=== PATIENT | female | born 1970 | race Caucasian/White ===

== ENCOUNTER 2017-05-07 11:11 | Inpatient (IN) ==
--- NOTE | 2017-05-07 11:17 | Emergency Department Note ---
Disposition Clinical Impression: Renal insufficiency DKA (diabetic ketoacidoses) Qualifiers: Diabetes mellitus type: type 1 Diabetes mellitus complication detail: without coma Qualified Code(s): E10.10 - Type 1 diabetes mellitus with ketoacidosis without coma Disposition: Admitted As Inpatient Condition: Fair Referrals: Angie Knott MD [Primary Care Provider] - Forms: ED Satisfaction Letter General Adult HPI - General Chief complaint: ED Dizziness Stated complaint: Dizzy, and cant walk straight Time Seen by Provider: 05/07/17 11:15 Source: patient, family Mode of arrival: private vehicle Limitations: no limitations Nursing Notes Reviewed: Yes Vital Signs Reviewed: Yes - History of Present Illness HPI Narrative: The patient relates that she has been feeling worse since being evaluated. That time she had some nausea and vomiting for about a day was returned to be hyperglycemic mildly acidotic. She has improved with IV fluids and insulin and discharged with prescriptions for Phenergan and Zofran. Since going home she has continued with weakness and dizziness. She reports now she is having difficulty with standing and walking. She relates she has had a couple falls down toward knees without significant injury. She reports increased weakness, dyspnea and dyspnea on exertion. Denies cough, fevers or chills. She indicates she has been taking the nausea medicine and is not had further vomiting. She states she has had persistent thirst and frequent urination. She indicates her blood sugars have been running "high" indicates that than in the range of 300-500. She denies any abdominal pain, diarrhea, change in medications or ill exposures. She states she simply become to tired and weak to stay at home. Onset (ago): day(s) Pain Scale: 0 Consistency: Worsening Improves with: rest Worsens with: movement, other (Exertion) Associated symptoms: Reports: malaise, weakness. Denies: confusion, chest pain , cough, diaphoresis, fever/chills, headaches, loss of appetite, nausea/vomiting , rash, seizure, shortness of breath, syncope - Related Data Home Medications Medication Instructions Recorded Confirmed Albuterol Sulfate [Proair Hfa] 1 puff IH Q6HR PRN 06/27/16 05/07/17 Aspirin [Lo-Dose Aspirin EC] 81 mg PO QAM 06/27/16 05/07/17 Insulin Glargine [Lantus] 50 unit SQ HS 06/27/16 05/07/17 Insulin LISPRO [HumaLOG] 0 units SQ TIDWM 06/27/16 05/07/17 Lisinopril [Zestril] 10 mg PO DAILY 06/27/16 05/07/17 Loratadine [Claritin] 10 mg PO QAM 06/27/16 05/07/17 Omeprazole [PriLOSEC] 40 mg PO DAILY 06/27/16 05/07/17 Rosuvastatin [Crestor] 40 mg PO HS 06/27/16 05/07/17 Previous Rx's Medication Instructions Recorded metFORMIN [Glucophage] 850 mg PO BIDWM #60 tablet 02/25/16 Ondansetron ODT [Zofran ODT] 4 mg SL Q6HR #10 tab.rapdis 05/03/17 Promethazine [Phenergan] 25 mg RC Q8HR PRN #10 supp.rect 05/03/17 Allergies Allergy/AdvReac Type Severity Reaction Status Date / Time No Known Allergies Allergy Verified 02/25/16 17:49 All systems ED: reviewed and negative except as stated. Past Medical History - Past Medical History Attestation: Yes The following information was validated with the patient. Source: patient, old records reviewed, nursing notes reviewed Medical history: Reports: asthma, diabetes, GERD, hyperlipidemia, hypertension, other Surgical history: Reports: , other (Tonsillectomy) Psychiatric history: Reports: no psych history [employer] history: Reports: bilateral tubal ligation - Social History Smoking Status: Never smoker Smokeless Tobacco Status: No Alcohol use: Reports: none Drug use: Reports: none Physical Exam - General Limitations: no limitations General appearance: alert, in no apparent distress - Head Head exam: atraumatic, normocephalic, normal inspection - Eye Eye exam: Present: normal appearance, PERRL, EOMI. Absent: scleral icterus, conjunctival injection - ENT ENT exam: normal exam, normal oropharynx, mucous membranes dry - Neck Neck exam: Present: normal inspection, full ROM, trachea midline - Chest Chest inspection: Present: normal inspection, symmetric chest wall rise - Respiratory Respiratory exam: Present: normal lung sounds bilaterally, respiratory distress (Tachypnea). Absent: wheezes, prolonged expiratory phase - Cardiovascular Cardiovascular exam: Present: regular rate, normal rhythm, tachycardia, normal heart sounds - Abdominal Exam Abdominal exam: Present: soft, Non-Tender, normal bowel sounds. Absent: tenderness, distention, guarding, rebound, rigidity - Extremities Exam Extremities exam: Present: normal inspection, full ROM, normal capillary refill. Absent: tenderness, pedal edema - Expanded Lower Extremity Exam Neurovascular/Tendon exam: Present: normal capillary refill. Absent: motor deficit, sensory deficit, tendon deficit Gait: not tested/not observed - Back Exam Back exam: Present: normal inspection, full ROM. Absent: tenderness, CVA tenderness (R), CVA tenderness (L) - Neurological Exam Neurological exam: Present: alert, oriented X3 - Psychiatric Psychiatric exam: Present: normal affect, normal mood - Skin Skin exam: Present: warm, dry, intact, normal color. Absent: diaphoresis, pallor Course Course Narrative: 1215: The patient's bicarbonate is critical at 5 but the blood sugars under 300. She is continued on aggressive IV fluids and ordered her some sodium bicarbonate. I am awaiting the return to the remainder of her laboratories. 1300: There has been discussed with Dr. Villasenor with verbal orders for her transfer to the floor for further inpatient care. Vital Signs Temperature 98.7 F 05/07/17 11:14 Pulse Rate 119 05/07/17 11:14 Respiratory Rate 16 05/07/17 11:14 Blood Pressure 133/89 05/07/17 11:14 O2 Sat by Pulse Oximetry 100 05/07/17 11:14 Temperature 98.7 F 05/07/17 13:30 Pulse Rate 104 05/07/17 13:30 Respiratory Rate 16 05/07/17 13:30 Blood Pressure 128/60 05/07/17 13:30 O2 Sat by Pulse Oximetry 100 05/07/17 13:30 Oxygen Delivery Oxygen Delivery Room Air Medical Decision Making - Medical Records Medical records reviewed: Yes I reviewed the patient's medical records. - Lab Data Lab results reviewed: Yes I reviewed the patient's lab results. Result diagrams: 05/07/17 11:35 05/07/17 11:35 Lab Results 05/07/17 05/07/17 05/07/17 Range/Units 11:35 11:35 11:35 WBC 11.3 H (4.3-11.1) K/mcL RBC 5.94 H (3.82-4.97) M/mcL Hgb 18.0 H (11.5-15.4) g/dL Hct 50.5 H (35.3-44.9) % MCV 85.0 (83.0-100.0) fL MCH 30.3 (28.0-33.3) pg MCHC 35.6 H (31.6-35.5) g/dL RDW 12.0 (11.5-14.5) % Plt Count 351 (140-400) K/mcL MPV 9.7 (9.4-12.4) fL Immature Gran % 0.6 (0-4) % Seg Neutrophils % 82.4 % Lymphocytes % 10.2 % Monocytes % 6.3 % Eosinophils % 0.3 % Basophils % 0.2 % Neutrophils # 9.3 H (1.6-8.9) K/mcL Lymphocytes # 1.2 (0.6-4.6) K/mcL Monocytes # 0.7 (0.0-1.3) K/mcL Eosinophils # 0.0 (0.0-0.6) K/mcL Basophils # 0.0 (0.0-0.2) K/mcL VBG pH 7.14 L* (7.32-7.42) pH Units VBG pCO2 19.5 L (41-51) mmHg VBG pO2 138.5 H (25-40) mmHg VBG HCO3 6.7 L (21-27) mEq/L Sodium 135 L (136-145) mEq/L Potassium 3.0 L (3.5-4.5) mEq/L Chloride 104 (98-109) mEq/L Carbon Dioxide 5 L* (19-29) mEq/L BUN 22 H (7-20) mg/dL Creatinine 1.38 H (0.57-1.11) mg/dL Est GFR ( Amer) 49 L (> 60) Est GFR (Non-Af Amer) 41 L (> 60) BUN/Creatinine Ratio 16 (6-26) Glucose 294 H (70-99) mg/dL Calculated Osmolality 294 (280-300) Calcium 8.7 (8.6-10.8) mg/dL Beta-Hydroxybutyric Acd > 2.00 H (0.02-0.27) mmol/L Urine Color (Yellow) Urine Clarity (Clear) Urine pH (5.0-8.0) pH Units Ur Specific [place] (1.010-1.025) Urine Protein (Neg-Trace) mg/dL Urine Glucose (UA) (Normal) mg/dL Urine Ketones (Negative) mg/dL Urine Blood (Negative) Urine Nitrite (Negative) Urine Bilirubin (Negative) Urine Urobilinogen (Normal) mg/dL Ur Leukocyte Esterase (Negative) 05/07/17 Range/Units 12:49 WBC (4.3-11.1) K/mcL RBC (3.82-4.97) M/mcL Hgb (11.5-15.4) g/dL Hct (35.3-44.9) % MCV (83.0-100.0) fL MCH (28.0-33.3) pg MCHC (31.6-35.5) g/dL RDW (11.5-14.5) % Plt Count (140-400) K/mcL MPV (9.4-12.4) fL Immature Gran % (0-4) % Seg Neutrophils % % Lymphocytes % % Monocytes % % Eosinophils % % Basophils % % Neutrophils # (1.6-8.9) K/mcL Lymphocytes # (0.6-4.6) K/mcL Monocytes # (0.0-1.3) K/mcL Eosinophils # (0.0-0.6) K/mcL Basophils # (0.0-0.2) K/mcL VBG pH (7.32-7.42) pH Units VBG pCO2 (41-51) mmHg VBG pO2 (25-40) mmHg VBG HCO3 (21-27) mEq/L Sodium (136-145) mEq/L Potassium (3.5-4.5) mEq/L Chloride (98-109) mEq/L Carbon Dioxide (19-29) mEq/L BUN (7-20) mg/dL Creatinine (0.57-1.11) mg/dL Est GFR ( Amer) (> 60) Est GFR (Non-Af Amer) (> 60) BUN/Creatinine Ratio (6-26) Glucose (70-99) mg/dL Calculated Osmolality (280-300) Calcium (8.6-10.8) mg/dL Beta-Hydroxybutyric Acd (0.02-0.27) mmol/L Urine Color Yellow (Yellow) Urine Clarity Cloudy A (Clear) Urine pH 5.5 (5.0-8.0) pH Units Ur Specific [place] >= 1.030 H (1.010-1.025) Urine Protein 100 H (Neg-Trace) mg/dL Urine Glucose (UA) 500 H (Normal) mg/dL Urine Ketones >=160 H (Negative) mg/dL Urine Blood Trace-lysed H (Negative) Urine Nitrite Negative (Negative) Urine Bilirubin Negative (Negative) Urine Urobilinogen Normal (Normal) mg/dL Ur Leukocyte Esterase Negative (Negative)
[2017-05-07] MEDS ORDERED: Ondansetron 4 MG/2 ML VIAL IVP ONE (11:26)
[2017-05-07] MEDS ORDERED: 0.9 % Sodium Chloride 1,000 ML IVC ONE (11:26)
[2017-05-07 11:50] LABS: Basophils % 0.2 %; Eosinophils % 0.3 %; Hematocrit 50.5 % (35.3-44.9); Immature Granulocytes % 0.6 % (0-4); Lymphocytes # 1.2 K/mcL (0.6-4.6); Lymphocytes % 10.2 %; Mean Corpuscular HGB Conc 35.6 g/dL (31.6-35.5); Mean Corpuscular Hemoglobin 30.3 pg (28.0-33.3); Mean Platelet Volume 9.7 fL (9.4-12.4); Monocytes # 0.7 K/mcL (0.0-1.3); Monocytes % 6.3 %; Neutrophils # 9.3 K/mcL (1.6-8.9); Platelet Count 351 K/mcL (140-400); Red Blood Count 5.94 M/mcL (3.82-4.97); Segmented Neutrophils % 82.4 %
[2017-05-07 12:11] LABS: BUN/Creatinine Ratio 16 (6-26); Blood Urea Nitrogen 22 mg/dL (7-20); Calcium 8.7 mg/dL (8.6-10.8); Chloride 104 mEq/L (98-109); Glucose 294 mg/dL (70-99); Osmolality,Calculated 294 (280-300); Sodium 135 mEq/L (136-145); eGFR For African Americans 49 (> 60); eGFR For Non-African Americans 41 (> 60)
[2017-05-07 12:15] LABS: Carbon Dioxide 5 mEq/L (19-29)
[2017-05-07 12:18] LABS: Beta-Hydroxybutyric Acid > 2.00 mmol/L (0.02-0.27)
[2017-05-07 12:22] LABS: VBG HCO3 6.7 mEq/L (21-27); VBG PCO2 19.5 mmHg (41-51); VBG PH 7.14 pH Units (7.32-7.42); VBG PO2 138.5 mmHg (25-40)
[2017-05-07] MEDS ORDERED: Insulin Regular, Human 100 UNIT/ML SQ ONE (12:28)
[2017-05-07] MEDS: 0.9 % Sodium Chloride 1,000 ML IVC ONE (12:40)
[2017-05-07 13:17] LABS: Bilirubin,Urine Negative (Negative); Blood,Urine Trace-lysed (Negative); Clarity,Urine Cloudy (Clear); Color,Urine Yellow (Yellow); Glucose,Urine (UA) 500 mg/dL (Normal); Ketones,Urine >=160 mg/dL (Negative); Leukocyte Esterase,Urine Negative (Negative); Nitrite,Urine Negative (Negative); PH,Urine 5.5 pH Units (5.0-8.0); Protein,Urine 100 mg/dL (Neg-Trace); Specific Gravity,Urine >= 1.030 (1.010-1.025); Urobilinogen,Urine Normal (Normal)
[2017-05-07 13:35] LABS: RBC,Urine 0-3 per hpf (0-3); Squamous Epithelial Cell,Urine Few per lpf (None-Few); WBC,Urine 0-3 per hpf (0-3)
[2017-05-07 13:36] LABS: Bacteria,Urine Few per hpf (None-Few); Yeast,Urine Many per hpf (None Seen)
[2017-05-07] MEDS ORDERED: Dextrose Gel 15 GM PO PRN ×2 (14:26)
[2017-05-07] MEDS ORDERED: Albuterol 2.5 MG/3 ML NEBULIZER IH PRN (14:26)
[2017-05-07] MEDS ORDERED: *HR* Dextrose 50 % in Water (Syg) 50 ML SYRINGE IVP PRN (14:26)
[2017-05-07] MEDS ORDERED: MOM Conc 10 ML UD.LIQ PO PRN (14:26)
[2017-05-07] MEDS ORDERED: Naloxone 0.4 MG/ML INJ IVP PRN (14:26)
[2017-05-07] MEDS ORDERED: Ondansetron 4 MG/2 ML VIAL IVP PRN (14:26)
[2017-05-07] MEDS ORDERED: 0.9 % Sodium Chloride 1,000 ML IVC SCH (14:26)
[2017-05-07] MEDS ORDERED: D5% in Water 1,000 ML IVC PRN (14:26)
[2017-05-07] MEDS ORDERED: 0.9 % Sodium Chloride 1,000 ML ONE (14:27)
--- NOTE | 2017-05-07 16:40 | Internal Med History&Physical ---
Date of Encounter: 05/07/17 Time of Encounter: 15:35 Assessment and Plan (1) DKA (diabetic ketoacidoses) Current visit: Yes Status: Acute She has been started on IV fluids with insulin coverage. She was given 2 ampules of sodium bicarbonate IV in emergency room. Labs will be monitored. Qualifiers: Diabetes mellitus type: type 1 Diabetes mellitus complication detail: without coma Qualified Code(s): E10.10 - Type 1 diabetes mellitus with ketoacidosis without coma (2) Hypokalemia Current visit: Yes Status: Acute Probably secondary to vomiting. Supplemental potassium will be given. (3) Renal insufficiency Current visit: Yes Status: Acute She will be given IV fluids and renal indices will be monitored. Internal Medicine - H&P: HPI Chief complaint: Vomiting and weakness Admitted From: Home Plans for Post Hospital Care: Home History of present illness: Ms. Matos is a 47 year old female who came to emergency room stating she had onset of vomiting May 03. There was no hematemesis, diarrhea or abdominal pain. After multiple episodes of vomiting she came to emergency room. She was given anti-emetics and released. She had 2 only more episodes of vomiting but had progressive weakness over the next 2 days. She states she had a fall at home on May 05 due to the weakness. When she did not feel she was improving she came back to emergency room today. She was evaluated and found to have DKA with hypokalemia. [facility] care [facility]. She denies previous DKA. She states she was diagnosed with DM 2 at age 26. She reports checking her blood sugar 5 times daily with readings between 100-300 + mg percent. Her endocrine history is significant for hyperlipidemia but no known thyroid disease. Past Med Surg Social Fam HX - Past Medical History Medical history: asthma, diabetes, GERD, hyperlipidemia, hypertension, other Psychiatric history: no psych history - Past Surgical History Surgical History: , other - Social History Smoking Status: Never smoker Smokeless Tobacco Status: No Alcohol use: none Drug use: none Internal Medicine - H&P: Meds metFORMIN [Glucophage] 850 mg PO BIDWM #60 tablet 02/25/16 [Rx] Albuterol Sulfate [Proair Hfa] 1 puff IH Q6HR PRN 06/27/16 [History] Aspirin [Lo-Dose Aspirin EC] 81 mg PO QAM 06/27/16 [History] Insulin Glargine [Lantus] 50 unit SQ HS 06/27/16 [History] Insulin LISPRO [HumaLOG] 0 units SQ TIDWM 06/27/16 [History] Lisinopril [Zestril] 10 mg PO DAILY 06/27/16 [History] Loratadine [Claritin] 10 mg PO QAM 06/27/16 [History] Omeprazole [PriLOSEC] 40 mg PO DAILY 06/27/16 [History] Rosuvastatin [Crestor] 40 mg PO HS 06/27/16 [History] Ondansetron ODT [Zofran ODT] 4 mg SL Q6HR #10 tab.rapdis 05/03/17 [Rx] Promethazine [Phenergan] 25 mg RC Q8HR PRN #10 supp.rect 05/03/17 [Rx] Allergies No Known Allergies Allergy (Verified 02/25/16 17:49) All Systems PM: A 10-system review of systems was performed and is negative for pertinent findings except as documented above in the HPI. Review of systems: Gen.: She states her weight has been stable the past few months Cardiovascular: She has a history of hypertension. She denies DC or heart failure but states she had a DVT with pulmonary embolism in 1995. Respiratory: She smoked minimally from ages [age]. She has no chronic lung disease. GI: She denies disorders of her liver gallbladder or exocrine pancreas : She had a kidney stone approximately 2 years ago. She denies other kidney or bladder disorders. Neurologic: She denies large distribution strokes or seizures. Endocrine: As per history of present illness Hematology/oncology: She denies blood disorders cancers or anemia Psychiatric: She denies anxiety depression or other mental health issues [place] skeletal: She has DJD but denies gout or other bone joint or muscle disorders. - Constitutional Vitals: Temp Pulse Resp BP Pulse Ox 98.9 F 96 18 164/92 100 05/07/17 15:05 05/07/17 15:05 05/07/17 15:05 05/07/17 15:05 05/07/17 15:05 Exam: Gen.: She is a well-developed well-nourished female who appears in minimal distress at present time. She complains of slight discomfort in her mid abdominal area. HEENT: Head is atraumatic and normal cephalic. Eyes: EOMI. There is no scleral icterus. Mouth: Mucosa is moist. Neck: Supple and nontender. There is no thyromegaly or adenopathy noted. Heart: Regular without murmurs gallops or ectopics. Lungs: No wheezes or crackles are heard. Abdomen: Bowel sounds are diminished. There is minimal tenderness to palpation. No masses or guarding are noted. Extremities: There is no cyanosis edema or clubbing noted. Dorsalis pedis and posterior tibial pulses are not palpable because she is wearing LAKSHMI hose bilaterally. Neurologic: Mental status: She is talkative and a good historian. Cranial nerves: Smile is symmetric. Forehead wrinkles bilaterally. Tongue protrudes midline. EOMI. Motor: There is no pronator drift. Cerebellar: Finger to nose is intact bilaterally. Skin: Warm and dry Internal Med - H&P Results - Labs CBC & Chem 7: 05/07/17 11:35 05/07/17 11:35 - VTE Documentation of Mechanical Device: Graduated compression elastic hosiery
[2017-05-07] MEDS: Insulin LISPRO 300 UNITS/3 ML VIAL SQ SCH (17:19)
[2017-05-07] MEDS: 0.45 % Sodium Chloride w/KCl 20 MEQ/1,000 ML MLS IVC SCH (17:19)
[2017-05-07] MEDS: *HR* Metformin 850 MG TABLET PO SCH (17:19)
[2017-05-07] MEDS ORDERED: NON-FORMULARY MEDICATION 1 EACH EACH (Insulin Glargine [Lantus] 50 UNIT) SQ SCH (21:00)
[2017-05-07] MEDS: Insulin DETEMIR 100 UNIT/ML X5UNITS SQ SCH (21:19)
[2017-05-08] MEDS: 0.45 % Sodium Chloride w/KCl 20 MEQ/1,000 ML MLS IVC SCH ×3 (01:27→17:54)
[2017-05-08 07:38] LABS: Basophils % 0.2 %; Eosinophils % 0.2 %; Hematocrit 41.9 % (35.3-44.9); Hemoglobin 15.8 g/dL (11.5-15.4); Immature Granulocytes % 0.3 % (0-4); Lymphocytes # 2.2 K/mcL (0.6-4.6); Lymphocytes % 18.5 %; Mean Corpuscular Volume 79.7 fL (83.0-100.0); Mean Platelet Volume 9.5 fL (9.4-12.4); Monocytes # 1.2 K/mcL (0.0-1.3); Monocytes % 10.2 %; Neutrophils # 8.4 K/mcL (1.6-8.9); Platelet Count 290 K/mcL (140-400); Red Blood Count 5.26 M/mcL (3.82-4.97); Red Cell Distribution Width 11.5 % (11.5-14.5); Segmented Neutrophils % 70.6 %
[2017-05-08 08:00] LABS: Mean Corpuscular HGB Conc 37.7 g/dL (31.6-35.5)
[2017-05-08] MEDS: Insulin LISPRO 300 UNITS/3 ML VIAL SQ SCH ×3 (08:30→16:52)
[2017-05-08] MEDS: Pantoprazole 40 MG VIAL IVP SCH (08:34)
[2017-05-08] MEDS: *HR* Metformin 850 MG TABLET PO SCH ×2 (08:34→16:52)
[2017-05-08] MEDS: Aspirin Enteric Coated 81 MG Tablet PO SCH (08:34)
[2017-05-08] MEDS ORDERED: Loratadine 10 MG TABLET PO SCH (09:00)
[2017-05-08 09:06] LABS: Alanine Aminotransferase 9 Units/L (0-55); Alkaline Phosphatase 109 Units/L (38-126); Aspartate Amino Transferase 12 Units/L (5-34); BUN/Creatinine Ratio 17 (6-26); Bilirubin,Total 0.9 mg/dL (0.2-1.2); Blood Urea Nitrogen 14 mg/dL (7-20); Calcium 7.9 mg/dL (8.6-10.8); Carbon Dioxide 15 mEq/L (19-29); Chloride 107 mEq/L (98-109); Globulin 2.9 g/dL (2.4-3.5); Glucose 75 mg/dL (70-99); Osmolality,Calculated 281 (280-300); Sodium 136 mEq/L (136-145); Total Protein 5.9 g/dL (6.0-8.3); eGFR For African Americans > 60 (> 60); eGFR For Non-African Americans > 60 (> 60)
[2017-05-08 09:19] LABS: Potassium 2.2 mEq/L (3.5-4.5)
[2017-05-08 09:29] LABS: Magnesium 1.8 mg/dL (1.6-2.6)
[2017-05-08 10:08] LABS: Phosphorous < 0.7 mg/dL (2.3-4.7)
[2017-05-08] MEDS ORDERED: Potassium Phosphate 44 MEQ in 0.9 % Sodium Chloride 250 ML IVPB ONE (10:28)
--- NOTE | 2017-05-08 10:35 | Internal Med Progress Note ---
Date of Encounter: 05/08/17 Time of Encounter: 10:25 - Assessment and plan (1) DKA (diabetic ketoacidoses) Current Visit: Yes Status: Acute Assessment and plan: May 08. Improved. Continue IV fluids and insulin administration. Recheck labs in a.m. Qualifiers: Diabetes mellitus type: type 1 Diabetes mellitus complication detail: without coma Qualified Code(s): E10.10 - Type 1 diabetes mellitus with ketoacidosis without coma (2) Hypokalemia Current Visit: Yes Status: Acute Assessment and plan: May 08. She has been ordered IV K riders and oral potassium supplementation. Recheck labs in a.m. (3) Renal insufficiency Current Visit: Yes Status: Acute Assessment and plan: May 08. Resolved. Continue IV fluids. Recheck labs in a.m. (4) Hypophosphatemia Current Visit: Yes Status: Acute Assessment and plan: May 08. We will give oral and IV potassium repletion. Recheck labs in a.m. - Subjective Interval history: May 08. She has no new complaints - Constitutional Vitals: Temp Pulse Resp BP Pulse Ox 98.9 F 101 16 125/72 96 05/08/17 07:30 05/08/17 07:30 05/08/17 07:30 05/08/17 07:30 05/08/17 09:26 Exam: She is resting comfortably in bed and appears in no acute distress. Her affect is bright and cheerful. I reviewed her medications and lab results. Internal Medicine: Result - Labs CBC & Chem 7: 05/08/17 07:21 05/08/17 07:21 Labs: Short CBC 05/08/17 Range/Units 07:21 WBC 11.9 H (4.3-11.1) K/mcL Hgb 15.8 H D (11.5-15.4) g/dL Hct 41.9 (35.3-44.9) % Plt Count 290 (140-400) K/mcL Neutrophils # 8.4 (1.6-8.9) K/mcL BMP 05/08/17 07:21 Sodium 136 Potassium 2.2 L* Chloride 107 Carbon Dioxide 15 L BUN 14 Creatinine 0.82 Glucose 75 Calcium 7.9 L Liver Function 05/08/17 Range/Units 07:21 Total Bilirubin 0.9 (0.2-1.2) mg/dL AST 12 (5-34) Units/L ALT 9 (0-55) Units/L Alkaline Phosphatase 109 (38-126) Units/L Albumin 3.0 L (3.5-5.0) g/dL - VTE Documentation of Mechanical Device: Graduated compression elastic hosiery Consult Discharge Plan - Plan Referrals: Angie Knott MD [Primary Care Provider] - 1 week
[2017-05-08] MEDS: Ondansetron 4 MG/2 ML VIAL IVP PRN (11:26)
[2017-05-08] MEDS: Mag Hydrox/Al Hydrox/Simeth 30 ML UDC PO PRN ×2 (11:45→21:02)
[2017-05-08] MEDS: 0.9 % Sodium Chloride 1,000 ML IVC ONE (20:19)
[2017-05-08] MEDS: Insulin DETEMIR 100 UNIT/ML X5UNITS SQ SCH (21:03)
[2017-05-09] MEDS: 0.45 % Sodium Chloride w/KCl 20 MEQ/1,000 ML MLS IVC SCH ×3 (03:55→13:11)
[2017-05-09 06:07] LABS: Basophils % 0.3 %; Eosinophils % 0.3 %; Hematocrit 39.8 % (35.3-44.9); Hemoglobin 15.1 g/dL (11.5-15.4); Immature Granulocytes % 0.4 % (0-4); Lymphocytes # 1.2 K/mcL (0.6-4.6); Lymphocytes % 10.3 %; Mean Corpuscular Hemoglobin 30.1 pg (28.0-33.3); Mean Corpuscular Volume 79.3 fL (83.0-100.0); Mean Platelet Volume 9.6 fL (9.4-12.4); Monocytes # 1.3 K/mcL (0.0-1.3); Monocytes % 10.5 %; Neutrophils # 9.3 K/mcL (1.6-8.9); Platelet Count 276 K/mcL (140-400); Red Blood Count 5.02 M/mcL (3.82-4.97); Red Cell Distribution Width 11.3 % (11.5-14.5); Segmented Neutrophils % 78.2 %
[2017-05-09 06:29] LABS: BUN/Creatinine Ratio 14 (6-26); Blood Urea Nitrogen 9 mg/dL (7-20); Calcium 8.4 mg/dL (8.6-10.8); Carbon Dioxide 25 mEq/L (19-29); Chloride 101 mEq/L (98-109); Glucose 48 mg/dL (70-99); Osmolality,Calculated 284 (280-300); Sodium 139 mEq/L (136-145); eGFR For African Americans > 60 (> 60); eGFR For Non-African Americans > 60 (> 60)
[2017-05-09 06:41] LABS: Beta-Hydroxybutyric Acid 1.19 mmol/L (0.02-0.27)
[2017-05-09 06:53] LABS: Mean Corpuscular HGB Conc 37.9 g/dL (31.6-35.5)
[2017-05-09 06:57] LABS: Potassium 2.2 mEq/L (3.5-4.5)
[2017-05-09 06:58] LABS: Phosphorous 0.7 mg/dL (2.3-4.7)
[2017-05-09] MEDS ORDERED: Potassium Phosphate 44 MEQ in 0.9 % Sodium Chloride 250 ML IVPB ONE ×3 (07:04→20:10)
[2017-05-09] MEDS: Pantoprazole 40 MG VIAL IVP SCH (07:51)
[2017-05-09] MEDS: Aspirin Enteric Coated 81 MG Tablet PO SCH (07:51)
[2017-05-09] MEDS: Insulin LISPRO 300 UNITS/3 ML VIAL SQ SCH ×3 (07:55→18:04)
[2017-05-09] MEDS: *HR* Metformin 850 MG TABLET PO SCH ×2 (07:56→18:05)
--- NOTE | 2017-05-09 09:07 | Internal Med Progress Note ---
Date of Encounter: 05/09/17 Time of Encounter: 08:56 - Assessment and plan (1) DKA (diabetic ketoacidoses) Current Visit: Yes Status: Acute Assessment and plan: May 08. Improved. Continue IV fluids and insulin administration. Recheck labs in a.m. . Acidosis has resolved. Ketosis is improved. Continue present regimen. We will decrease IV fluid rate. Qualifiers: Diabetes mellitus type: type 1 Diabetes mellitus complication detail: without coma Qualified Code(s): E10.10 - Type 1 diabetes mellitus with ketoacidosis without coma (2) Hypokalemia Current Visit: Yes Status: Acute Assessment and plan: May 08. She has been ordered IV K riders and oral potassium supplementation. Recheck labs in a.m. May 09. Continue potassium supplementation and recheck labs in a.m. (3) Renal insufficiency Current Visit: Yes Status: Acute Assessment and plan: May 08. Resolved. Continue IV fluids. Recheck labs in a.m. (4) Hypophosphatemia Current Visit: Yes Status: Acute Assessment and plan: May 08. We will give oral and IV potassium repletion. Recheck labs in a.m. May 09. Continue phosphorus repletion. Recheck labs in a.m. - Subjective Interval history: May 08. She has no new complaints May 09. She has no new complaints and feels better. - Constitutional Vitals: Temp Pulse Resp BP Pulse Ox 98 F 95 18 128/78 98 05/09/17 04:21 05/09/17 04:21 05/09/17 04:21 05/09/17 04:21 05/09/17 04:21 Exam: She is resting comfortably in bed and has no new complaints. Her affect is bright and cheerful. I reviewed her medications and lab results. Internal Medicine: Result - Labs CBC & Chem 7: 05/09/17 05:18 05/09/17 05:18 Labs: Short CBC 05/09/17 Range/Units 05:18 WBC 11.9 H (4.3-11.1) K/mcL Hgb 15.1 (11.5-15.4) g/dL Hct 39.8 (35.3-44.9) % Plt Count 276 (140-400) K/mcL Neutrophils # 9.3 H (1.6-8.9) K/mcL BMP 05/08/17 05/09/17 07:21 05:18 Sodium 136 139 Potassium 2.2 L* 2.2 L* Chloride 107 101 Carbon Dioxide 15 L 25 BUN 14 9 Creatinine 0.82 0.66 Glucose 75 48 L Calcium 7.9 L 8.4 L Liver Function 05/08/17 Range/Units 07:21 Total Bilirubin 0.9 (0.2-1.2) mg/dL AST 12 (5-34) Units/L ALT 9 (0-55) Units/L Alkaline Phosphatase 109 (38-126) Units/L Albumin 3.0 L (3.5-5.0) g/dL - VTE Documentation of Mechanical Device: Graduated compression elastic hosiery Consult Discharge Plan - Plan Referrals: Angie Knott MD [Primary Care Provider] - 1 week
[2017-05-09] MEDS: *HR* Enoxaparin 40 MG/0.4 ML SYRINGE SQ SCH (09:19)
[2017-05-09] MEDS: Simethicone 80 MG TAB.CHEW PO PRN ×2 (11:45→22:14)
[2017-05-09] MEDS: Mag Hydrox/Al Hydrox/Simeth 30 ML UDC PO PRN (12:23)
[2017-05-09] MEDS: Ondansetron 4 MG/2 ML VIAL IVP PRN (18:04)
[2017-05-09] MEDS: Insulin DETEMIR 100 UNIT/ML X5UNITS SQ SCH (20:11)
[2017-05-09] MEDS ORDERED: Nystatin POWDER 30 GM BOTTLE TP SCH (21:00)
[2017-05-10] MEDS: 0.45 % Sodium Chloride w/KCl 20 MEQ/1,000 ML MLS IVC SCH (05:35)
[2017-05-10] MEDS: *HR* Enoxaparin 40 MG/0.4 ML SYRINGE SQ SCH (05:35)
[2017-05-10 06:07] LABS: BUN/Creatinine Ratio 13 (6-26); Blood Urea Nitrogen 7 mg/dL (7-20); Calcium 8.5 mg/dL (8.6-10.8); Carbon Dioxide 27 mEq/L (19-29); Chloride 101 mEq/L (98-109); Glucose 52 mg/dL (70-99); Magnesium 1.8 mg/dL (1.6-2.6); Osmolality,Calculated 289 (280-300); Phosphorous 2.3 mg/dL (2.3-4.7); Potassium 3.1 mEq/L (3.5-4.5); Sodium 142 mEq/L (136-145); eGFR For African Americans > 60 (> 60); eGFR For Non-African Americans > 60 (> 60)
[2017-05-10 06:13] LABS: Beta-Hydroxybutyric Acid 0.29 mmol/L (0.02-0.27)
[2017-05-10 06:16] LABS: Basophils % 0.2 %; Eosinophils # 0.1 K/mcL (0.0-0.6); Eosinophils % 0.9 %; Hematocrit 41.6 % (35.3-44.9); Hemoglobin 15.6 g/dL (11.5-15.4); Immature Granulocytes % 0.3 % (0-4); Mean Corpuscular Hemoglobin 30.1 pg (28.0-33.3); Mean Corpuscular Volume 80.2 fL (83.0-100.0); Monocytes # 0.8 K/mcL (0.0-1.3); Monocytes % 9.3 %; Neutrophils # 5.1 K/mcL (1.6-8.9); Platelet Count 293 K/mcL (140-400); Red Blood Count 5.19 M/mcL (3.82-4.97); Red Cell Distribution Width 11.5 % (11.5-14.5); Segmented Neutrophils % 56.3 %
[2017-05-10 06:19] LABS: Mean Corpuscular HGB Conc 37.5 g/dL (31.6-35.5)
[2017-05-10 08:58] VITALS: BP 128/82
[2017-05-10] MEDS: Insulin LISPRO 300 UNITS/3 ML VIAL SQ SCH (09:20)
[2017-05-10] MEDS: *HR* Metformin 850 MG TABLET PO SCH (09:21)
[2017-05-10] MEDS: Aspirin Enteric Coated 81 MG Tablet PO SCH (09:54)
[2017-05-10] MEDS: Mag Hydrox/Al Hydrox/Simeth 30 ML UDC PO PRN (09:55)
[2017-05-10] MEDS: Simethicone 80 MG TAB.CHEW PO PRN (09:55)
--- NOTE | 2017-05-10 11:28 | Discharge Summary ---
Date of Encounter: 05/10/17 Time of Encounter: 10:40 - Discharge Diagnosis (1) DKA (diabetic ketoacidoses) Priority: Primary Status: Acute Qualifiers: Diabetes mellitus type: type 1 Diabetes mellitus complication detail: without coma Qualified Code(s): E10.10 - Type 1 diabetes mellitus with ketoacidosis without coma (2) Hypokalemia Priority: Secondary Status: Acute (3) Renal insufficiency Priority: Secondary Status: Resolved (4) Hypophosphatemia Priority: Secondary Status: Resolved - Discharge Medications Prescriptions: Phos-NaK [Neutra-Phos] 1 each PO BID #6 powd.pack Potassium Chloride 10 meq PO BIDWM #6 tab.er.prt Tramadol HCl [Ultram] 50 mg PO QID PRN #12 tab PRN Reason: Pain Home Medications: metFORMIN [Glucophage] 850 mg PO BIDWM #60 tablet 02/25/16 [Rx] Albuterol Sulfate [Proair Hfa] 1 puff IH Q6HR PRN 06/27/16 [History] Aspirin [Lo-Dose Aspirin EC] 81 mg PO QAM 06/27/16 [History] Insulin Glargine [Lantus] 50 unit SQ HS 06/27/16 [History] Insulin LISPRO [HumaLOG] 0 units SQ TIDWM 06/27/16 [History] Lisinopril [Zestril] 10 mg PO DAILY 06/27/16 [History] Omeprazole [PriLOSEC] 40 mg PO DAILY 06/27/16 [History] Rosuvastatin [Crestor] 40 mg PO HS 06/27/16 [History] Ondansetron ODT [Zofran ODT] 4 mg SL Q6HR #10 tab.rapdis 05/03/17 [Rx] Promethazine [Phenergan] 25 mg RC Q8HR PRN #10 supp.rect 05/03/17 [Rx] Loratadine [Claritin] 10 mg PO QAM PRN #0 05/10/17 [Rx] Phos-NaK [Neutra-Phos] 1 each PO BID #6 powd.pack 05/10/17 [Rx] Potassium Chloride 10 meq PO BIDWM #6 tab.er.prt 05/10/17 [Rx] Tramadol HCl [Ultram] 50 mg PO QID PRN #12 tab 06/18/17 [Rx] Allergies/Adverse Reactions: Allergies No Known Allergies Allergy (Verified 02/25/16 17:49) Date of admission: 05/09/17 09:07 Primary care physician: Angie Knott - Patient Status Disposition: Home, Self-Care Condition: Fair Functional capacity at discharge: independent ambulation Overall status at discharge: patient is progressing back to baseline - Discharge Instructions Follow Up With: Angie Knott MD [Primary Care Provider] - 1 week - Diet and Activity Activity: resume usual activities as tolerated Diet: diabetic diet Hospital course: Ms. Matos is a 47 year old female who came to emergency room stating she had onset of vomiting May 03. There was no hematemesis, diarrhea or abdominal pain. After multiple episodes of vomiting she came to emergency room. She was given anti-emetics and released. She had 2 only more episodes of vomiting but had progressive weakness over the next 2 days. She states she had a fall at home on May 05 due to the weakness. When she did not feel she was improving she came back to emergency room today. She was evaluated and found to have DKA with hypokalemia. She was admitted to [facility] for ongoing care needs. Initial orders were written by the emergency room physician. I saw her on May 07 and performed a history and physical. She was started on IV fluids with insulin. She was given 2 ampules of sodium bicarbonate in the emergency room. Her acidosis and ketosis resolved by the time of discharge. Supplemental potassium was given for hypokalemia. Supplement phosphorus was given for hypophosphatemia. Her renal insufficiency resolved with BUN and creatinine being 70.53 respectively on the day of discharge. She slipped on wet matt in the shower room the morning of discharge with no significant injury. She had soreness of her gluteal and posterior thigh when I saw her the morning of May 10 but she felt stable for discharge home. She will follow with her PCP Dr. Knott within 1 week. She will continue with phosphorus and potassium supplementation at discharge for 3 days. I also prescribed 12 tramadol pills for her gluteal/thigh pain. She requested a shower chair and a prescription for this was written. - Time Spent with Patient Total time spent providing and/or coordinating discharge services: - Constitutional Vitals: Temp Pulse Resp BP Pulse Ox 98.5 F 81 16 128/82 99 05/10/17 07:39 05/10/17 07:39 05/10/17 07:39 05/10/17 07:39 05/10/17 10:07 - VTE Documentation of Mechanical Device: Graduated compression elastic hosiery
== END 2017-05-10 12:15 | disposition home or self-care (01) | DRG 420 ==
LOC: EMEROOPIK 11:11 → INPPIK 11:11
PROVIDERS: ADMIT Internal Medicine; ATTEND Internal Medicine

== ENCOUNTER 2017-12-31 13:28 | Observation (INO) ==
--- NOTE | 2017-12-31 13:33 | Emergency Department Note ---
Disposition Clinical Impression: Weakness generalized, Hyperglycemia due to type 1 diabetes mellitus Nausea and vomiting Qualifiers: Vomiting type: bilious vomiting Qualified Code(s): R11.14 - Bilious vomiting Disposition: Admitted As Inpatient Condition: Fair Prescriptions: Ondansetron ODT [Zofran ODT] 4 mg SL Q6HR PRN #8 tab.rapdis PRN Reason: Nausea Promethazine [Phenergan] 25 mg PO Q6HR PRN #16 tablet PRN Reason: Nausea Referrals: Angie Knott MD [Primary Care Provider] - (Recheck in 3-4 days if no better.) Forms: ED Satisfaction Letter Nausea/Vomiting/Diarrhea HPI - General Chief complaint: ED Nausea/Vomiting/Diarrhea Stated complaint: vomiting, acid reflux, trouble walking Time Seen by Provider: 12/31/17 13:46 Source: patient Mode of arrival: private vehicle Limitations: no limitations Nursing Notes Reviewed: Yes Vital Signs Reviewed: Yes - History of Present Illness HPI Narrative: Patient presents saying she has been having persistent vomiting since 4:00 yesterday afternoon. She states she has had intermittent nausea vomiting all night there is initially mucus is green bile. She started to feel weak and wobbly with walking and is therefore came in for evaluation. She has had little abdominal cramping but no other abdominal pain or diarrhea. She denies fevers, chills, cough or congestion. She denies any significant shortness of breath. She has not been having urinary difficulty and she denies any ill exposures. She denies recent antibiotics, foodborne illness concerns or travel. She does volunteer that she had the flu 3 weeks ago. She is diabetic and she checked her blood sugar today to be 110. Pt Subjective Complaint: nausea, vomiting Onset (ago): day(s) (1) Description of emesis: bilious Severity: none Improves with: nothing Worsens with: eating Associated symptoms: Reports: loss of appetite, malaise, nausea/vomiting, weakness. Denies: myalgias, chest pain, cough, diaphoresis, fever/chills, headaches, rash, dysuria, shortness of breath, syncope - Related Data Home Medications Medication Instructions Recorded Confirmed Albuterol Sulfate [Proair Hfa] 1 puff IH Q6HR PRN 06/27/16 12/31/17 Aspirin [Lo-Dose Aspirin EC] 81 mg PO QAM 06/27/16 12/31/17 Lisinopril [Zestril] 10 mg PO DAILY 06/27/16 12/31/17 Omeprazole [PriLOSEC] 40 mg PO DAILY 06/27/16 12/31/17 Rosuvastatin [Crestor] 40 mg PO HS 06/27/16 12/31/17 Insulin ASPART [Novolog Flexpen] 100 unit SQ AD 08/20/17 12/31/17 Insulin Degludec [Tresiba 70 unit SQ HS 08/20/17 12/31/17 Flextouch U-100] Liraglutide [Victoza 2-Maxwell] 1.8 mg SQ DAILY 08/20/17 12/31/17 metFORMIN [Glucophage] 500 mg PO BIDWM 08/20/17 12/31/17 Previous Rx's Medication Instructions Recorded Loratadine [Claritin] 10 mg PO QAM PRN #0 05/10/17 Allergies Allergy/AdvReac Type Severity Reaction Status Date / Time No Known Allergies Allergy Verified 12/31/17 13:29 All systems ED: reviewed and negative except as stated. Past Medical History - Past Medical History Attestation: Yes The following information was validated with the patient. 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 Absent: scleral icterus, conjunctival injection - ENT ENT exam: normal exam, normal oropharynx, mucous membranes moist - Neck Neck exam: Present: normal inspection, full ROM, trachea midline - Chest Chest inspection: Present: normal inspection, symmetric chest wall rise - Respiratory Respiratory exam: Present: normal lung sounds bilaterally. Absent: respiratory distress, wheezes, prolonged expiratory phase - Cardiovascular Cardiovascular exam: Present: regular rate, normal rhythm, normal heart sounds. Absent: tachycardia - Abdominal Exam Abdominal exam: Present: soft, Non-Tender, normal bowel sounds. Absent: tenderness, distention, guarding, rebound, rigidity - Extremities Exam Extremities exam: Present: normal inspection, full ROM, normal capillary refill. Absent: tenderness, pedal edema - Expanded Lower Extremity Exam Neurovascular/Tendon exam: Present: normal capillary refill. Absent: motor deficit, sensory deficit, tendon deficit Gait: observed and normal - Back Exam Back exam: Present: normal inspection, full ROM. Absent: tenderness, CVA tenderness (R), CVA tenderness (L) - Neurological Exam Neurological exam: Present: alert, oriented X3, normal gait - Psychiatric Psychiatric exam: Present: normal affect, normal mood - Skin Skin exam: Present: warm, dry, intact, normal color. Absent: rash, diaphoresis , pallor Course Course Narrative: 162: The patient's blood sugar remains at 480 at this time. I'll write for additional insulin and continue IV fluids. She does not show evidence for DKA at this time. If we can obtain blood sugar control I will I will be to be discharged to home. She has not been having any persistent nausea or vomiting. She states that she is feeling better and requests having lights off so she can rest. 174: Patient's blood sugar remains out about 440. We'll continue with IV fluids and administered another 12 units of insulin. If she is not showing significant improvement we'll need to place her in for observation. 1900: The patient's Accu-Chek remains reading over 400. Believe showed continued observation overnight for diabetic control. A page has been placed to Dr. Villasenor for this purpose. 1909: Dr. Villasenor is agreeable with observation of this patient. Verbal orders have been obtained for her observation period Vital Signs Temperature 97.9 F 12/31/17 13:31 Pulse Rate 122 12/31/17 13:31 Respiratory Rate 18 12/31/17 13:31 Blood Pressure 126/72 12/31/17 13:31 O2 Sat by Pulse Oximetry 99 12/31/17 13:31 Temperature 97.9 F 12/31/17 13:31 Pulse Rate 126 12/31/17 18:07 Respiratory Rate 18 12/31/17 18:07 Blood Pressure 121/83 12/31/17 18:07 O2 Sat by Pulse Oximetry 95 12/31/17 18:07 Oxygen Delivery Oxygen Delivery Room Air Nausea/Vomiting/Diarrhea - Differential Diagnosis Likely: food poisoning, gastroenteritis, dehydration - Medical Records Medical records reviewed: Yes I reviewed the patient's medical records. - Lab Data Lab results reviewed: Yes I reviewed the patient's lab results. Result diagrams: 12/31/17 14:42 12/31/17 14:42 Lab Results 12/31/17 12/31/17 Range/Units 14:42 14:42 WBC 16.2 H (4.3-11.1) K/mcL RBC 5.91 H (3.82-4.97) M/mcL Hgb 17.6 H (11.5-15.4) g/dL Hct 53.1 H (35.3-44.9) % MCV 89.8 (83.0-100.0) fL MCH 29.8 (28.0-33.3) pg MCHC 33.1 (31.6-35.5) g/dL RDW 12.3 (11.5-14.5) % Plt Count 402 H (140-400) K/mcL MPV 10.2 (9.4-12.4) fL Immature Gran % 0.7 (0-4) % Seg Neutrophils % 92.3 % Lymphocytes % 4.9 % Monocytes % 1.2 % Eosinophils % 0.2 % Basophils % 0.7 % Neutrophils # 15.0 H (1.6-8.9) K/mcL Lymphocytes # 0.8 (0.6-4.6) K/mcL Monocytes # 0.2 (0.0-1.3) K/mcL Eosinophils # 0.0 (0.0-0.6) K/mcL Basophils # 0.1 (0.0-0.2) K/mcL Sodium 139 (136-145) mEq/L Potassium 4.2 (3.5-5.1) mEq/L Chloride 96 L (98-107) mEq/L Carbon Dioxide 18 L (23-29) mEq/L BUN 30 H (6-20) mg/dL Creatinine 1.01 (0.60-1.20) mg/dL Est GFR ( Amer) > 60 (> 60) Est GFR (Non-Af Amer) 58 L (> 60) BUN/Creatinine Ratio 30 H (6-26) Glucose 523 H* (70-105) mg/dL Calculated Osmolality 318 H (280-300) Calcium 10.1 (8.6-10.3) mg/dL
[2017-12-31] MEDS ORDERED: 0.9 % Sodium Chloride 1,000 ML IVC ONE ×3 (13:53→19:57)
[2017-12-31] MEDS ORDERED: Ondansetron 4 MG/2 ML VIAL IVP ONE (13:53)
[2017-12-31 14:52] LABS: Basophils # 0.1 K/mcL (0.0-0.2); Basophils % 0.7 %; Eosinophils % 0.2 %; Hematocrit 53.1 % (35.3-44.9); Hemoglobin 17.6 g/dL (11.5-15.4); Immature Granulocytes % 0.7 % (0-4); Lymphocytes # 0.8 K/mcL (0.6-4.6); Lymphocytes % 4.9 %; Mean Corpuscular HGB Conc 33.1 g/dL (31.6-35.5); Mean Corpuscular Hemoglobin 29.8 pg (28.0-33.3); Mean Corpuscular Volume 89.8 fL (83.0-100.0); Mean Platelet Volume 10.2 fL (9.4-12.4); Monocytes # 0.2 K/mcL (0.0-1.3); Monocytes % 1.2 %; Platelet Count 402 K/mcL (140-400); Red Blood Count 5.91 M/mcL (3.82-4.97); Red Cell Distribution Width 12.3 % (11.5-14.5); Segmented Neutrophils % 92.3 %
[2017-12-31 15:14] LABS: BUN/Creatinine Ratio 30 (6-26); Blood Urea Nitrogen 30 mg/dL (6-20); Calcium 10.1 mg/dL (8.6-10.3); Carbon Dioxide 18 mEq/L (23-29); Chloride 96 mEq/L (98-107); Glucose 523 mg/dL (70-105); Osmolality,Calculated 318 (280-300); Potassium 4.2 mEq/L (3.5-5.1); Sodium 139 mEq/L (136-145); eGFR For Non-African Americans 58 (> 60)
[2017-12-31] MEDS ORDERED: Insulin Regular, Human 100 UNIT/ML SQ ONE ×3 (15:14→17:44)
[2017-12-31] MEDS ORDERED: Mag Hydrox/Al Hydrox/Simeth 30 ML UDC PO ONE (18:12)
[2017-12-31] MEDS ORDERED: Dextrose Gel 15 GM/37.5 ML TUBE PO PRN ×2 (19:57)
[2017-12-31] MEDS ORDERED: Loratadine 10 MG TABLET PO PRN (19:57)
[2017-12-31] MEDS ORDERED: NON-FORMULARY MEDICATION 1 EACH EACH (Insulin Aspart [Novolog Flexpen] 100 UNIT) SQ SCH (19:57)
[2017-12-31] MEDS ORDERED: *HR* Dextrose 50 % in Water (Syg) 50 ML SYRINGE IVP PRN (19:57)
[2017-12-31] MEDS ORDERED: D5% in Water 1,000 ML IVC PRN (19:57)
[2017-12-31] MEDS ORDERED: Naloxone 0.4 MG/ML INJ IVP PRN (19:57)
[2017-12-31] MEDS: traMADol 50 MG TABLET PO PRN (21:28)
[2017-12-31] MEDS: 0.9 % Sodium Chloride 1,000 ML IVC SCH (21:29)
[2017-12-31] MEDS: Ondansetron 4 MG/2 ML VIAL IVP PRN (22:12)
[2018-01-01] MEDS: traMADol 50 MG TABLET PO PRN ×3 (04:03→20:48)
[2018-01-01] MEDS: Mag Hydrox/Al Hydrox/Simeth 30 ML UDC PO PRN (05:04)
[2018-01-01] MEDS: 0.9 % Sodium Chloride 1,000 ML IVC SCH (05:06)
[2018-01-01] MEDS: Ondansetron 4 MG/2 ML VIAL IVP PRN ×2 (06:04→12:57)
[2018-01-01 06:07] LABS: BUN/Creatinine Ratio 44 (6-26); Blood Urea Nitrogen 36 mg/dL (6-20); Calcium 9.3 mg/dL (8.6-10.3); Carbon Dioxide 23 mEq/L (23-29); Chloride 101 mEq/L (98-107); Glucose 315 mg/dL (70-105); Osmolality,Calculated 306 (280-300); Potassium 3.8 mEq/L (3.5-5.1); Sodium 138 mEq/L (136-145); eGFR For Non-African Americans > 60 (> 60)
[2018-01-01] MEDS ORDERED: *HR* Metformin 850 MG TABLET PO SCH (08:00)
[2018-01-01] MEDS: TRESIBA FLEXTOUCH SQ SCH ×2 (08:21→21:00)
[2018-01-01] MEDS: *HR* Promethazine 25 MG/ML VIAL IVP PRN ×2 (08:52→20:48)
[2018-01-01] MEDS: Insulin LISPRO 300 UNITS/3 ML VIAL SQ SCH ×3 (08:55→17:08)
[2018-01-01] MEDS: Liraglutide [Victoza 2-Pak] 1.8 MG SQ SCH (08:57)
[2018-01-01] MEDS: Aspirin Enteric Coated 81 MG Tablet PO SCH (08:57)
[2018-01-01] MEDS: *HR* Metformin 500 MG TABLET PO SCH ×2 (09:31→17:07)
--- NOTE | 2018-01-01 12:51 | Internal Med History&Physical ---
Date of Encounter: 01/01/18 Time of Encounter: 12:20 Assessment and Plan (1) Acute gastroenteritis Current visit: Yes Status: Acute She will be given IV fluids and prn antiemetics. (2) Hyperglycemia due to type 2 diabetes mellitus Current visit: Yes Status: Chronic Continue home insulin regimen and do Accu-Cheks with SSI. 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 We will give IV fluids and monitor renal indices. Internal Medicine - H&P: HPI Chief complaint: Vomiting Admitted From: Emergency Dept Plans for Post Hospital Care: Home History of present illness: Ms. Matos is a 47 year old female who came to emergency room stating she had onset of vomiting the evening of December 30. She denies diarrhea, hematemesis or blood in her stools. She had some diffuse abdominal discomfort. When she did not improve she came to emergency room. She was evaluated and found to have leukocytosis with left shift and azotemia with hyperglycemia. She was admitted to [facility] for for ongoing care needs. She denies any family contacts with similar illnesses. She reports having the "flu" approximately 2 weeks ago. GI history is negative for known disorders of her liver gallbladder or exocrine pancreas. Past Med Surg Social Fam HX - Past Medical History Medical history: asthma, diabetes, GERD, hyperlipidemia, hypertension Psychiatric history: no psych history - Past Surgical History Surgical History: , other - Social History Smoking Status: Never smoker Smokeless Tobacco Status: No Alcohol use: none Drug use: none - Family History Father Living Status: Hx Family Cardiac Disorders: Yes Internal Medicine - H&P: Meds Albuterol Sulfate [Proair Hfa] 1 puff IH Q6HR PRN 06/27/16 [History] Aspirin [Lo-Dose Aspirin EC] 81 mg PO QAM 06/27/16 [History] Lisinopril [Zestril] 10 mg PO DAILY 06/27/16 [History] Omeprazole [PriLOSEC] 40 mg PO DAILY 06/27/16 [History] Rosuvastatin [Crestor] 40 mg PO HS 06/27/16 [History] Loratadine [Claritin] 10 mg PO QAM PRN #0 05/10/17 [Rx] Insulin ASPART [Novolog Flexpen] 100 unit SQ AD 08/20/17 [History] Insulin Degludec [Tresiba Flextouch U-100] 70 unit SQ HS 08/20/17 [History] Liraglutide [Victoza 2-Maxwell] 1.8 mg SQ DAILY 08/20/17 [History] metFORMIN [Glucophage] 500 mg PO BIDWM 08/20/17 [History] 3 Allergy/AdvReac Type Severity Reaction Status Date / Time No Known Allergies Allergy Verified 12/31/17 13:29 All Systems PM: A 10-system review of systems was performed and is negative for pertinent findings except as documented above in the HPI. Review of systems: Review of systems from her April 2017 [facility] hospitalization were reviewed and revised as below. Gen.: Her weight has decreased from 87.265 kg on 05/10/2017 to 83.007 kg today. Cardiovascular: She has a history of hypertension. She denies MO or heart failure but states she had a DVT with pulmonary embolism in 2001 while with her daughter. Respiratory: She smoked minimally from ages [age]. She has no chronic lung disease. GI: Per history of present illness : She had a kidney stone approximately 2 years ago. She denies other kidney or bladder disorders. Neurologic: She denies large distribution strokes or seizures. Endocrine: She was diagnosed with DM 2 and age 26. Endocrine history significant otherwise for hyperlipidemia but no known thyroid disease. Hematology/oncology: She denies blood disorders cancers or anemia Psychiatric: She denies anxiety depression or other mental health issues Musk skeletal: She has DJD but denies gout or other bone joint or muscle disorders. - Constitutional Vitals: Temp Pulse Resp BP Pulse Ox 98.2 F 117 20 106/65 99 01/01/18 11:07 01/01/18 11:07 01/01/18 11:07 01/01/18 11:07 01/01/18 11:07 Exam: General: She is well-developed well-nourished female sitting in a chair at bedside who appears in mild discomfort HEENT: Head is atraumatic and normal cephalic. Eyes: EOMI. There is no scleral icterus. Mouth: Mucosa is moist. Neck: Supple and nontender. There is no thyromegaly or adenopathy noted. Heart: Regular without murmurs gallops or ectopics Lungs: No wheezes or crackles are heard. Abdomen: Soft and nontender. Bowel sounds are diminished. No masses or guarding are noted. Extremities: There is no cyanosis edema or clubbing noted. Dorsalis pedis and posterior tibial pulses are trace palpable bilaterally. Her feet are warm to touch. Neurologic: Mental status: She is talkative and a good historian. Cranial nerves: Smile is symmetric. Forehead wrinkles bilaterally. Tongue protrudes midline. EOMI. Motor: There is no pronator drift. Cerebellar: Finger to nose is intact bilaterally. Skin: Warm and dry Internal Med - H&P Results - Labs CBC & Chem 7: 12/31/17 14:42 01/01/18 05:08 Labs: [facility] 01/01/18 05:08 Sodium 138 Potassium 3.8 Chloride 101 Carbon Dioxide 23 BUN 36 H Creatinine 0.82 Glucose 315 H Calcium 9.3
[2018-01-01 13:24] LABS: Magnesium 2.4 mg/dL (1.6-2.6); Phosphorous 3.5 mg/dL (2.7-4.5)
[2018-01-01] MEDS: 0.45 % Sodium Chloride w/KCl 20 MEQ/1,000 ML MLS IVC SCH (13:26)
[2018-01-02] MEDS: 0.45 % Sodium Chloride w/KCl 20 MEQ/1,000 ML MLS IVC SCH ×4 (05:30→14:41)
[2018-01-02 05:34] LABS: Basophils # 0.1 K/mcL (0.0-0.2); Basophils % 0.5 %; Eosinophils % 0.2 %; Hematocrit 40.5 % (35.3-44.9); Hemoglobin 13.4 g/dL (11.5-15.4); Immature Granulocytes % 0.4 % (0-4); Lymphocytes # 2.6 K/mcL (0.6-4.6); Mean Corpuscular HGB Conc 33.1 g/dL (31.6-35.5); Mean Corpuscular Hemoglobin 29.4 pg (28.0-33.3); Mean Corpuscular Volume 88.8 fL (83.0-100.0); Mean Platelet Volume 9.7 fL (9.4-12.4); Monocytes # 0.7 K/mcL (0.0-1.3); Monocytes % 5.3 %; Platelet Count 315 K/mcL (140-400); Red Blood Count 4.56 M/mcL (3.82-4.97); Red Cell Distribution Width 12.7 % (11.5-14.5); Segmented Neutrophils % 73.6 %
[2018-01-02 05:51] LABS: Alanine Aminotransferase 8 Units/L (7-52); Albumin 3.3 g/dL (3.5-5.7); Albumin/Globulin Ratio 1.4 (1.1-2.2); Alkaline Phosphatase 98 Units/L (34-104); Aspartate Amino Transferase 10 Units/L (13-39); BUN/Creatinine Ratio 39 (6-26); Bilirubin,Total 0.6 mg/dL (0.3-1.0); Blood Urea Nitrogen 28 mg/dL (6-20); Calcium 8.4 mg/dL (8.6-10.3); Carbon Dioxide 25 mEq/L (23-29); Chloride 103 mEq/L (98-107); Globulin 2.4 g/dL (2.4-3.5); Glucose 193 mg/dL (70-105); Neutrophils # 9.6 K/mcL (1.6-8.9); Osmolality,Calculated 297 (280-300); Sodium 138 mEq/L (136-145); Total Protein 5.7 g/dL (6.4-8.9); eGFR For Non-African Americans > 60 (> 60)
[2018-01-02] MEDS: Ondansetron 4 MG/2 ML VIAL IVP PRN (06:29)
[2018-01-02] MEDS: traMADol 50 MG TABLET PO PRN ×3 (06:55→19:47)
[2018-01-02] MEDS ORDERED: Ondansetron ODT 4 MG TAB.RAPDIS SL PRN (07:12)
[2018-01-02] MEDS: Insulin LISPRO 300 UNITS/3 ML VIAL SQ SCH ×3 (09:32→17:16)
[2018-01-02] MEDS: Liraglutide [Victoza 2-Pak] 1.8 MG SQ SCH (09:39)
[2018-01-02] MEDS: Aspirin Enteric Coated 81 MG Tablet PO SCH (09:42)
[2018-01-02] MEDS: *HR* Metformin 500 MG TABLET PO SCH ×2 (09:42→17:25)
[2018-01-02] MEDS: *HR* Promethazine 25 MG/ML VIAL IVP PRN ×2 (09:43→14:26)
[2018-01-02] MEDS: *HR* HYDROcodone/Acet 5/325 mg TABLET PO PRN ×2 (12:17→17:25)
--- NOTE | 2018-01-02 14:07 | Internal Med Progress Note ---
Date of Encounter: 01/02/18 Time of Encounter: 14:00 - Assessment and plan (1) Acute gastroenteritis Current Visit: Yes Status: Acute Assessment and plan: January 02. Continue IV fluids at decreased rate with antiemetics as scheduled. Anticipate discharge home tomorrow. (2) Hyperglycemia due to type 2 diabetes mellitus Current Visit: Yes Status: Chronic Assessment and plan: January 02. 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 Resolved. Reduce IV rate. Anticipate discharge home tomorrow. - Subjective Interval history: January 02. She complains of nausea,dry heaves, and abdominal discomfort after taking her morning "stomach medicines". - Constitutional Vitals: Temp Pulse Resp BP Pulse Ox 98.4 F 107 17 154/80 96 01/02/18 10:36 01/02/18 10:36 01/02/18 10:36 01/02/18 10:36 01/02/18 10:36 Exam: She appears in mild discomfort lying in bed. Abdomen shows bowel sounds diminished. There is mild tenderness to palpation. Heart is regular without murmurs gallops or ectopics. Lungs are clear anteriorly. I reviewed her medications and lab results. Internal Medicine: Result - Labs CBC & Chem 7: 01/02/18 05:24 01/02/18 05:24 Labs: Short CBC 01/02/18 Range/Units 05:24 WBC 13.0 H (4.3-11.1) K/mcL Hgb 13.4 D (11.5-15.4) g/dL Hct 40.5 (35.3-44.9) % Plt Count 315 (140-400) K/mcL Neutrophils # 9.6 H (1.6-8.9) K/mcL BMP 01/02/18 05:24 Sodium 138 Potassium 4.0 Chloride 103 Carbon Dioxide 25 BUN 28 H Creatinine 0.72 Glucose 193 H Calcium 8.4 L Liver Function 01/02/18 Range/Units 05:24 Total Bilirubin 0.6 (0.3-1.0) mg/dL AST 10 L (13-39) Units/L ALT 8 (7-52) Units/L Alkaline Phosphatase 98 (34-104) Units/L Albumin 3.3 L (3.5-5.7) g/dL - VTE Documentation of Mechanical Device: Graduated compression elastic hosiery Consult Discharge Plan - Plan Referrals: Angie Knott MD [Primary Care Provider] - 1 week
[2018-01-02] MEDS: Mag Hydrox/Al Hydrox/Simeth 30 ML UDC PO PRN (14:24)
[2018-01-02] MEDS: TRESIBA FLEXTOUCH SQ SCH (19:47)
[2018-01-03 07:08] VITALS: BP 111/72
[2018-01-03] MEDS: Aspirin Enteric Coated 81 MG Tablet PO SCH (08:50)
[2018-01-03] MEDS: *HR* Metformin 500 MG TABLET PO SCH (08:50)
[2018-01-03] MEDS: Insulin LISPRO 300 UNITS/3 ML VIAL SQ SCH (08:51)
[2018-01-03] MEDS: 0.45 % Sodium Chloride w/KCl 20 MEQ/1,000 ML MLS IVC SCH (08:51)
[2018-01-03] MEDS: Liraglutide [Victoza 2-Pak] 1.8 MG SQ SCH (08:52)
--- NOTE | 2018-01-03 10:04 | Discharge Summary ---
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 of insulin; Z79.4 - long term care social worker (current) use of insulin; Z79.4 - long term care social worker (current) use of insulin; Z79.4 - long term care social worker (current) use of insulin (3) Renal insufficiency Priority: Secondary Status: Resolved - Discharge Medications Home Medications: Albuterol Sulfate [Proair Hfa] 1 puff IH Q6HR PRN 06/27/16 [History] Aspirin [Lo-Dose Aspirin EC] 81 mg PO QAM 06/27/16 [History] Lisinopril [Zestril] 10 mg PO DAILY 06/27/16 [History] Rosuvastatin [Crestor] 40 mg PO HS 06/27/16 [History] Loratadine [Claritin] 10 mg PO QAM PRN #0 05/10/17 [Rx] Insulin ASPART [Novolog Flexpen] 100 unit SQ AD 08/20/17 [History] Insulin Degludec [Tresiba Flextouch U-100] 70 unit SQ HS 08/20/17 [History] Liraglutide [Victoza 2-Maxwell] 1.8 mg SQ DAILY 08/20/17 [History] metFORMIN [Glucophage] 500 mg PO BIDWM 08/20/17 [History] Omeprazole [PriLOSEC] 40 mg PO DAILY PRN #0 01/03/18 [Rx] Allergies/Adverse Reactions: 3 Allergy/AdvReac Type Severity Reaction Status Date / Time No Known Allergies Allergy Verified 12/31/17 13:29 Date of admission: 12/31/17 19:29 Primary care physician: Angie Knott - Patient Status Disposition: Home, Self-Care Condition: Fair Functional capacity at discharge: independent ambulation Overall status at discharge: patient is progressing back to baseline - Discharge Instructions Follow Up With: Angie Knott MD [Primary Care Provider] - 1 week - Diet and Activity Activity: resume usual activities as tolerated Diet: advance to your usual diet Hospital course: Ms. Matos is a 47 year old female who came to emergency room stating she had onset of vomiting the evening of December 30. She denies diarrhea, hematemesis or blood in her stools. She had some diffuse abdominal discomfort. When she did not improve she came to emergency room. She was evaluated and found to have leukocytosis with left shift and azotemia with hyperglycemia. She was admitted to [facility] for for ongoing care needs. Initial orders were written by the emergency room physician. I saw her on January 01 and performed a history and physical. She was given IV fluids and prn anti-emetics. She had no vomiting the last 24 hours of hospitalization. WBC improved to 13.0 with resolution of the left shift on January 02. Azotemia improved with BUN and creatinine being 28 and 0.72 respectively on January 02 with estimated GFR greater than 60. There were no other new problems and on January 03 I felt she was stable for discharge home. She will follow with her PCP Dr. Knott within 1 week. - Time Spent with Patient Total time spent providing and/or coordinating discharge services: - Constitutional Vitals: Temp Pulse Resp BP Pulse Ox 98.6 F 93 18 111/72 99 01/03/18 07:07 01/03/18 07:07 01/03/18 07:07 01/03/18 07:07 01/03/18 07:07 - VTE Documentation of Mechanical Device: Graduated compression elastic hosiery
== END 2018-01-03 12:11 | disposition home or self-care (01) ==
LOC: EMEROOPIK 13:28 → INPPIK 13:28
PROVIDERS: ADMIT Internal Medicine; ATTEND Internal Medicine